=== PATIENT | female | born 1955 ===

== ENCOUNTER 2020-09-07 08:41 | Inpatient (IN) ==
[2020-09-07] MEDS ORDERED: levoFLOXacin 500 MG/100 ML 500 MG/100 ML BAG IVPB ONE (09:17)
[2020-09-07] MEDS ORDERED: Ringers Solution, Lactated 1,000 ML IVC SCH (09:30)
[2020-09-07 09:57] LABS: Basophils % 0.7 %; Eosinophils # 0.2 K/mcL (0.0-0.6); Eosinophils % 3.6 %; Hemoglobin 12.8 g/dL (11.5-15.4); Lymphocytes # 1.3 K/mcL (0.6-4.6); Lymphocytes % 28.3 %; Mean Corpuscular Hemoglobin 30.2 pg (28.0-33.3); Mean Corpuscular Volume 94.3 fL (83.0-100.0); Mean Platelet Volume 9.9 fL (9.4-12.4); Monocytes # 0.5 K/mcL (0.0-1.3); Neutrophils # 2.5 K/mcL (1.6-8.9); Platelet Count 195 K/mcL (140-400); Red Blood Count 4.24 M/mcL (3.82-4.97); Red Cell Distribution Width 13.4 % (11.5-14.5); Segmented Neutrophils % 55.4 %; White Blood Count 4.4 K/mcL (4.3-11.1)
[2020-09-07] MEDS ORDERED: 0.9 % Sodium Chloride 500 ML ONE ×2 (10:04→11:28)
[2020-09-07] MEDS ORDERED: Lidocaine/EPI 1:100k 1% 50 ML VIAL ONE (10:04)
[2020-09-07 10:11] LABS: Prothrombin Time 12.1 Seconds (9.4-12.1)
[2020-09-07 10:14] LABS: Activated Partial Thrombo Time 30.8 Seconds (26.0-36.0)
[2020-09-07] MEDS ORDERED: *HR* HYDROmorphone PF 0.5 MG/0.5 ML SYRINGE IVP PRN (10:30)
[2020-09-07] MEDS ORDERED: *HR* Labetalol 20 MG/4 ML SYRINGE IVP PRN (10:30)
[2020-09-07] MEDS ORDERED: Acetaminophen IV 1,000 MG/100 ML BAG IVPB ONE (10:30)
[2020-09-07] MEDS ORDERED: Famotidine 20 MG/2 ML VIAL IVP ONE (10:30)
[2020-09-07] MEDS ORDERED: Pregabalin 75 MG CAPSULE PO ONE (10:30)
[2020-09-07] MEDS ORDERED: *HR* HYDROmorphone 2 MG TABLET PO PRN (10:30)
[2020-09-07] MEDS ORDERED: *HR* OxyCODONE Immed Rel 5 MG TABLET PO PRN (10:30)
[2020-09-07] MEDS ORDERED: *HR* LORazepam 1 MG TABLET PO ONE (10:32)
[2020-09-07] MEDS ORDERED: *HR* Midazolam HCl 5 MG/5 ML VIAL IVP ONE (11:25)
[2020-09-07] MEDS ORDERED: *HR* FentaNYL (PF) 100 MCG/2 ML VIAL IVP ONE (11:25)
[2020-09-07] MEDS ORDERED: *HR* Midazolam HCl 2 MG/2 ML VIAL IVP ONE (11:33)
[2020-09-07] MEDS ORDERED: *HR* Midazolam HCl 2 MG/2 ML VIAL ONE ×2 (11:34→13:58)
[2020-09-07] MEDS ORDERED: Isovue-300 150 ML INFUS..BTL IVP ONE (11:40)
[2020-09-07] MEDS ORDERED: *HR* FentaNYL (PF) 100 MCG/2 ML VIAL ONE (13:57)
[2020-09-07] MEDS ORDERED: *HR* Rocuronium Bromide 50 MG/5 ML VIAL ONE (13:57)
[2020-09-07] MEDS ORDERED: *HR* Succinylcholine 200 MG/10 ML VIAL IVP ONE (13:57)
[2020-09-07] MEDS ORDERED: Dexamethasone 4 MG/ML VIAL ONE (13:57)
[2020-09-07] MEDS ORDERED: Lidocaine -MPF 2% 2 ML VIAL ONE (13:57)
[2020-09-07] MEDS ORDERED: Ondansetron 4 MG/2 ML VIAL ONE (13:57)
[2020-09-07] MEDS ORDERED: Sugammadex Sodium 200 MG/2 ML VIAL IV ONE (13:57)
[2020-09-07] MEDS ORDERED: *HR* Propofol 200 MG/20 ML VIAL IVP ONE (13:58)
[2020-09-07] MEDS ORDERED: Lidocaine HCL 4 ML Topical Solution (Laryng-O-Jet Kit Sterile Pak) TP ONE (14:02)
[2020-09-07] MEDS ORDERED: *HR* PHENYLEPHRINE 1,000 MCG/10 ML SYRINGE IVP ONE (15:02)
[2020-09-07] MEDS ORDERED: Bupivacaine/EPI 1:200k 0.25% 50 ML VIAL ONE (15:08)
[2020-09-07] MEDS ORDERED: Piperacillin/Tazobactam 3.375 GM in 0.9 % Sodium Chloride Mini Bag 100 ML IVPB ONE (15:09)
[2020-09-07] MEDS ORDERED: Ondansetron 4 MG/2 ML VIAL IVP PRN (16:31)
[2020-09-07] MEDS ORDERED: *HR* HYDROcodone/Acet 5/325 mg TABLET PO PRN (17:37)
[2020-09-07] MEDS ORDERED: Acetaminophen 325 MG TABLET PO PRN (17:37)
[2020-09-07] MEDS ORDERED: Naloxone 0.4 MG/ML INJ IVP PRN (17:37)
[2020-09-07] MEDS: 0.9 % Sodium Chloride 1,000 ML IVC SCH (18:31)
[2020-09-08] MEDS: Piperacillin/Tazobactam 3.375 GM in 0.9 % Sodium Chloride Mini Bag 100 ML IVPB SCH ×3 (00:13→15:07)
[2020-09-08] MEDS: 0.9 % Sodium Chloride 1,000 ML IVC SCH ×3 (02:34→18:57)
[2020-09-08 06:48] LABS: Hematocrit 34.9 % (35.3-44.9); Mean Corpuscular HGB Conc 30.4 g/dL (31.6-35.5); Mean Corpuscular Hemoglobin 29.4 pg (28.0-33.3); Mean Corpuscular Volume 96.9 fL (83.0-100.0); Monocytes # 0.5 K/mcL (0.0-1.3); Platelet Count 132 K/mcL (140-400); Red Cell Distribution Width 13.8 % (11.5-14.5)
[2020-09-08 06:51] LABS: Hemoglobin 10.6 g/dL (11.5-15.4); White Blood Count 11.9 K/mcL (4.3-11.1)
[2020-09-08 06:56] LABS: INR 1.2; Prothrombin Time 14.1 Seconds (9.4-12.1)
[2020-09-08 07:13] LABS: Neutrophils # 10.5 K/mcL (1.6-8.9); Platelet Estimate Normal (Normal)
[2020-09-08 07:21] LABS: BUN/Creatinine Ratio 17 (6-26); Blood Urea Nitrogen 18 mg/dL (8-23); Calcium 9.4 mg/dL (8.6-10.3); Carbon Dioxide 23 mEq/L (23-29); Chloride 110 mEq/L (98-107); Glucose 191 mg/dL (70-105); Osmolality,Calculated 297 (280-300); Potassium 4.1 mEq/L (3.5-5.1); Sodium 140 mEq/L (136-145); eGFR For African Americans > 60 (> 60); eGFR For Non-African Americans 53 (> 60)
[2020-09-08] MEDS: atenoloL 25 MG TABLET PO SCH (08:38)
[2020-09-09] MEDS: Piperacillin/Tazobactam 3.375 GM in 0.9 % Sodium Chloride Mini Bag 100 ML IVPB SCH ×3 (00:03→16:29)
[2020-09-09] MEDS: 0.9 % Sodium Chloride 1,000 ML IVC SCH ×2 (04:02→12:10)
[2020-09-09] MEDS: atenoloL 25 MG TABLET PO SCH (08:07)
[2020-09-09 10:15] LABS: BUN/Creatinine Ratio 28 (6-26); Blood Urea Nitrogen 22 mg/dL (8-23); Calcium 9.8 mg/dL (8.6-10.3); Carbon Dioxide 23 mEq/L (23-29); Chloride 114 mEq/L (98-107); Glucose 138 mg/dL (70-105); Osmolality,Calculated 300 (280-300); Potassium 3.8 mEq/L (3.5-5.1); Sodium 142 mEq/L (136-145); eGFR For African Americans > 60 (> 60); eGFR For Non-African Americans > 60 (> 60)
[2020-09-09 10:17] LABS: Troponin I 0.07 ng/mL (< 0.04)
[2020-09-09] MEDS ORDERED: Isovue-370 500 ML BOTTLE IVP ONE (10:54)
[2020-09-09] MEDS ORDERED: Dexamethasone 4 MG/ML VIAL IVP STA (10:55)
[2020-09-09 10:58] LABS: Adenovirus Not Detected (Not Detect); Bordetella Pertussis Not Detected (Not Detect); Chlamydophila pneumoniae Not Detected (Not Detect); Coronavirus 229E Not Detected (Not Detect); Coronavirus HKU1 Not Detected (Not Detect); Coronavirus NL63 Not Detected (Not Detect); Coronavirus OC43 Not Detected (Not Detect); Human Metapneumovirus Not Detected (Not Detect); Human Rhinovirus/Enterovirus Not Detected (Not Detect); Influenza A Subtype 2009 H1 Not Detected (Not Detect); Influenza B Not Detected (Not Detect); Mycoplasma pneumoniae Not Detected (Not Detect); Parainfluenza Virus 1 Not Detected (Not Detect); Parainfluenza Virus 2 Not Detected (Not Detect); Parainfluenza Virus 3 Not Detected (Not Detect); Parainfluenza Virus 4 Not Detected (Not Detect); Respiratory Syncytial Virus Not Detected (Not Detect); SARS-CoV-2 Not Detected (Not Detect)
[2020-09-09 11:43] LABS: Hematocrit 35.9 % (35.3-44.9); Hemoglobin 11.4 g/dL (11.5-15.4); Mean Corpuscular HGB Conc 31.8 g/dL (31.6-35.5); Mean Corpuscular Volume 94.5 fL (83.0-100.0); Mean Platelet Volume 11.1 fL (9.4-12.4); Platelet Count 154 K/mcL (140-400); Red Cell Distribution Width 13.7 % (11.5-14.5)
[2020-09-09] MEDS: levoFLOXacin 750 MG/150 ML 750 MG/150 ML BAG IVPB SCH (12:09)
[2020-09-09] MEDS: Vancomycin 1,250 MG/262.5 ML IV.SOLN IVPB SCH (12:09)
[2020-09-09 12:20] LABS: Eosinophils # 0.3 K/mcL (0.0-0.6); Monocytes # 1.9 K/mcL (0.0-1.3); Neutrophils # 12.5 K/mcL (1.6-8.9)
[2020-09-09 12:21] LABS: Platelet Estimate Normal (Normal)
[2020-09-09] MEDS ORDERED: Furosemide 20 MG/2 ML VIAL IVP ONE (16:35)
[2020-09-09] MEDS ORDERED: Perflutren Lipid Microsphere 1.3 ML in 0.9 % Sodium Chloride 8.7 ML IVP PRN (16:57)
[2020-09-10] MEDS: Piperacillin/Tazobactam 3.375 GM in 0.9 % Sodium Chloride Mini Bag 100 ML IVPB SCH ×2 (00:52→08:00)
[2020-09-10] MEDS: Vancomycin 1,250 MG/262.5 ML IV.SOLN IVPB SCH (00:53)
[2020-09-10 07:52] VITALS: BP 138/67
[2020-09-10] MEDS: atenoloL 25 MG TABLET PO SCH (07:58)
[2020-09-10 09:35] LABS: Basophils % 0.2 %; Immature Granulocytes % 0.8 % (0-4); Lymphocytes # 0.9 K/mcL (0.6-4.6); Lymphocytes % 7.8 %; Mean Corpuscular HGB Conc 31.4 g/dL (31.6-35.5); Mean Corpuscular Hemoglobin 29.5 pg (28.0-33.3); Mean Corpuscular Volume 93.8 fL (83.0-100.0); Mean Platelet Volume 10.3 fL (9.4-12.4); Monocytes # 0.6 K/mcL (0.0-1.3); Monocytes % 5.4 %; Neutrophils # 10.1 K/mcL (1.6-8.9); Platelet Count 165 K/mcL (140-400); Red Blood Count 3.73 M/mcL (3.82-4.97); Red Cell Distribution Width 13.4 % (11.5-14.5); Segmented Neutrophils % 85.8 %; White Blood Count 11.8 K/mcL (4.3-11.1)
[2020-09-10 09:54] LABS: BUN/Creatinine Ratio 37 (6-26); Blood Urea Nitrogen 26 mg/dL (8-23); Calcium 10.3 mg/dL (8.6-10.3); Carbon Dioxide 27 mEq/L (23-29); Chloride 111 mEq/L (98-107); Glucose 165 mg/dL (70-105); Osmolality,Calculated 302 (280-300); Phosphorous 2.3 mg/dL (2.7-4.5); Potassium 3.6 mEq/L (3.5-5.1); Sodium 142 mEq/L (136-145); eGFR For African Americans > 60 (> 60); eGFR For Non-African Americans > 60 (> 60)
[2020-09-10] MEDS: levoFLOXacin 750 MG/150 ML 750 MG/150 ML BAG IVPB SCH (10:16)
== END 2020-09-10 13:33 | disposition home or self-care (01) | DRG 660 ==
LOC: SAMDAY 08:41 → 3ANU 17:36 → SUATTDRO 09-08 13:43 → 2NENU 09-09 13:45 → 3BNU 09-09 23:50
PROVIDERS: ADMIT Urology; ATTEND Internal Medicine